=== PATIENT | male | born 1945 | race Caucasian/White ===

== ENCOUNTER 2017-04-16 09:39 | Day surgery (SDC) | payer MEDICARE, OTHER ==
[~2017-04-16] VITALS: Ht 182.9 cm; Wt 99.2 kg
[~2017-04-16 09:39] MED LIST: ASCO500 PO; ASPI81CH PO; Augmentin 875-1 EACH PO; CHOL10002 PO; HYDCHL12.5; LISI20 PO; NITR.6SL SL; Omeprazole20 M1 PO; PROP160ER PO; SIMV40 PO; Super B Comple150 MG PO
[2018-01-25] MEDS ORDERED: TOPI50 PO (04:36)
== END 2017-04-16 13:10 | disposition home or self-care (01) ==
LOC: ORSCSDS 09:39
PROVIDERS: Internal Medicine Gastroenterology
PROC: 0DBL8ZX Excision of Transverse Colon, Via Natural or Artificial Opening Endoscopic, Diagnostic (ICD-10-PCS; principal; 2017-04-16 12:00)
PROC: 0DBH8ZX Excision of Cecum, Via Natural or Artificial Opening Endoscopic, Diagnostic (ICD-10-PCS; principal; 2017-04-16 12:00)
PROC: 0DBK8ZX Excision of Ascending Colon, Via Natural or Artificial Opening Endoscopic, Diagnostic (ICD-10-PCS; principal; 2017-04-16 12:00)
PROC: 0DBM8ZX Excision of Descending Colon, Via Natural or Artificial Opening Endoscopic, Diagnostic (ICD-10-PCS; principal; 2017-04-16 12:00)
DX: Z12.11 Encounter for screening for malignant neoplasm of colon (principal); D12.0 Benign neoplasm of cecum; D12.2 Benign neoplasm of ascending colon; D12.3 Benign neoplasm of transverse colon; D12.4 Benign neoplasm of descending colon; Z86.010 Personal history of colon polyps; K64.8 Other hemorrhoids; K57.30 Diverticulosis of large intestine without perforation or abscess without bleeding; I25.10 Atherosclerotic heart disease of native coronary artery without angina pectoris; I25.2 Old myocardial infarction; E78.5 Hyperlipidemia, unspecified; I10 Essential (primary) hypertension; K21.9 Gastro-esophageal reflux disease without esophagitis; Z95.1 Presence of aortocoronary bypass graft; Z87.891 Personal history of nicotine dependence; Z79.82 Long term (current) use of aspirin; Z79.899 Other long term (current) drug therapy
CPT/HCPCS: 88305; J7120

== ENCOUNTER 2018-07-26 06:07 | Day surgery (SDC) | payer MEDICARE, OTHER ==
[~2018-07-26] VITALS: Ht 182.9 cm; Wt 215.0 kg
[~2018-07-26 06:07] MED LIST changes: +ALA-CORT28.4 GM UD; +HYDCHL12.5 PO; +Mobic15 MG PO; +TOPI50 PO; +VITAMIN C500 MG PO
--- NOTE | 2018-07-26 08:35 | NUR ---
Pt able to swallow took sips of h2o, gag reflux present. Pt ambulated hallway julia well. Denies pain, dizziness.
--- NOTE | 2018-07-26 08:48 | NUR ---
DISCHARGE PT REMAINED A&OX3-PT ABLE TO SWALLOW AMBULATE AND DRESS SELF. IV DC'D WITH TIP IN TACT. DISCHARGE PAPERWORK GONE OVER WITH PT AND SPOUSE. PT DENIED ANY QUESTIONS REGUARDING THE DISCHARGE EDCATION GIVEN. DR. BROWN SPOKE WITH FAMILY. PT WHEELED OUT BY ALEENA Rodriguez RN.
== END 2018-07-26 22:38 | disposition home or self-care (01) ==
LOC: MHTC 06:07
DX: I34.0 Nonrheumatic mitral (valve) insufficiency (principal); I25.10 Atherosclerotic heart disease of native coronary artery without angina pectoris; I25.2 Old myocardial infarction; I10 Essential (primary) hypertension; E78.5 Hyperlipidemia, unspecified; J44.9 Chronic obstructive pulmonary disease, unspecified; Z79.899 Other long term (current) drug therapy; Z79.82 Long term (current) use of aspirin; Z87.891 Personal history of nicotine dependence; Z95.1 Presence of aortocoronary bypass graft
CPT/HCPCS: 76376; 93312; 93325; J2250; J2704; J7030

== ENCOUNTER → 2020-06-20 | Outpatient (CLI) | payer MEDICARE, OTHER ==
[2020-06-21 13:33] LABS: Adenovirus F 40/41 Not Detected (NOT DETECT); Astrovirus Not Detected (NOT DETECT); Campylobacter Sp Not Detected (NOT DETECT); Cryptosporidium Not Detected (NOT DETECT); Cyclospora Cayetanensis Not Detected (NOT DETECT); E. Coli O157 Not Detected (NOT DETECT); Entamoeba Histolytica Not Detected (NOT DETECT); Enteroaggregative E. coli-EAEC Not Detected (NOT DETECT); Enteropathogenic E. coli-EPEC Not Detected (NOT DETECT); Enterotoxigenic E. coli-ETEC Not Detected (NOT DETECT); Giardia Lamblia Not Detected (NOT DETECT); Norovirus GI/GII Not Detected (NOT DETECT); Plesiomonas Shigelloides Not Detected (NOT DETECT); Rotavirus A Not Detected (NOT DETECT); Salmonella Sp Not Detected (NOT DETECT); Sapovirus Not Detected (NOT DETECT); Shiga Toxin-prod E. coli-STEC Not Detected (NOT DETECT); Shigella/Enteroin E. coli-EIEC Not Detected (NOT DETECT); Vibrio Cholerae Not Detected (NOT DETECT); Vibrio Sp Not Detected (NOT DETECT); Yersinia Enterocolitica Not Detected (NOT DETECT)
== END | disposition home or self-care (01) ==
LOC: LAB SHORT 20:00 → LAB 20:00
PROVIDERS: Radiology Radiation Oncology
DX: R19.7 Diarrhea, unspecified (principal)
CPT/HCPCS: 0097U

== ENCOUNTER → 2020-08-08 | Outpatient (CLI) | payer MEDICARE, OTHER ==
[2020-08-09 12:54] LABS: Stool Occult Bld Immuno 1 Negative (NEGATIVE)
== END | disposition home or self-care (01) ==
LOC: LAB SHORT 10:00 → LAB EV 10:00 → LAB SHORT 08-09 11:26
PROVIDERS: Physician Assistant
DX: D64.9 Anemia, unspecified (principal)
CPT/HCPCS: 82274

== ENCOUNTER 2020-11-25 21:31 | Emergency (ER) | payer MEDICARE, OTHER ==
[~2020-11-25] VITALS: Ht 182.9 cm; Wt 81.7 kg
[2020-11-25 22:10] LABS: BASOPHILS ABSOLUTE AUTO 0.05 K/mm3 (0.00-0.23); BASOPHILS PERCENT AUTO 1 % (0-2); EOSINOPHILS ABSOLUTE AUTO 0.48 K/mm3 (0.00-0.68); EOSINOPHILS PERCENT AUTO 6 % (0-6); Hematocrit 39.7 % (37.0-53.0); Hemoglobin 13.3 g/dL (13.5-17.5); IMMATURE GRAN ABSOLUTE AUTO 0.03 K/mm3 (0.00-0.10); IMMATURE GRAN PERCENT AUTO 0 % (0-1); LYMPHOCYTES ABSOLUTE AUTO 1.53 K/mm3 (0.84-5.20); LYMPHOCYTES PERCENT AUTO 19 % (21-46); MONOCYTES ABSOLUTE AUTO 1.17 K/mm3 (0.16-1.47); MONOCYTES PERCENT AUTO 15 % (4-13); Mean Corpuscular HGB 32.5 pg (26.0-34.0); Mean Corpuscular HGB Conc 33.5 g/dL (31.5-36.5); Mean Corpuscular Volume 97 fL (80-100); Mean Platelet Volume 9.9 fL (9.1-12.4); NEUTROPHILS ABSOLUTE AUTO 4.65 K/mm3 (1.96-9.15); NEUTROPHILS PERCENT AUTO 59 % (41-73); Platelet Count 197 K/mm3 (150-400); RDW Coefficient Variation 12.6 % (11.7-14.2); RDW Standard Deviation 45.1 fL (35.1-46.3); Red Blood Cell Count 4.09 M/mm3 (4.30-5.90); White Blood Cell Count 7.91 K/mm3 (4.00-11.30)
[2020-11-25 22:44] LABS: Alanine Aminotransfer (ALT/SGP 27 U/L (12-78); Albumin, Blood 3.3 g/dL (3.4-5.0); Albumin/Globulin Ratio 1.1 (0.8-1.8); Alk Phos 74 U/L (50-136); Anion Gap 6 mmol/L (6-16); Aspartate Aminotrans (AST/SGOT 22 U/L (12-37); Bilirubin, Total 0.5 mg/dL (0.1-1.0); Blood Urea Nitrogen 28 mg/dL (8-24); Bun/Creatinine Ratio 18.4 (12.0-20.0); CO2, Blood 24 mmol/L (21-32); Chloride, Blood 109 mmol/L (98-108); Creatinine, Blood 1.52 mg/dL (0.60-1.20); Glomerular Filtration Rate 45 (60-); Glucose, Blood 105 mg/dL (70-99); Potassium, Blood 4.1 mmol/L (3.5-5.5); Sodium, Blood 139 mmol/L (136-145); Total Protein, Blood 6.3 g/dL (6.4-8.2); Troponin I <0.015 ng/mL (0.000-0.040)
== END 2020-11-26 00:26 | disposition home or self-care (01) ==
LOC: ER 21:31
PROVIDERS: Emergency Medicine
DX: I95.9 Hypotension, unspecified (principal)
CPT/HCPCS: 70450; 80053; 84484; 85025; 93005; 93010; 99285-25; J7030

== ENCOUNTER 2021-07-05 06:08 | Day surgery (SDC) | payer MEDICARE, OTHER ==
[~2021-07-05] VITALS: Ht 182.9 cm; Wt 90.4 kg
[~2021-07-05 06:08] MED LIST changes: +ATOR40TA PO; +FURO40 PO; +HYDCOR2.5C PR; +POTCHL20ER PO; +REVATIO10 MG/1 ML PO; +TOPI100 PO
[2021-07-05] MEDS ORDERED: METO25ER PO (06:30)
--- NOTE | 2021-07-05 07:15 | NUR ---
DR HENLEY HERE TO SEE PT. DR HENLEY SHOWN REDNESS AREA TO LIZZIE AREA.
--- NOTE | 2021-07-05 07:18 | NUR ---
Ambulatory in Day Surgery WITH . History, Chart, Medications and Allergies reviewed before start of procedure.Lungs clear T/O to Auscultation. Patient confirms NPO status and agrees with scheduled surgery. Pre-Op teaching done. Pt verbalizes understanding.
[2021-07-05] MEDS ORDERED: Vitamin B-Comp1 EACH PO (16:13)
[2021-07-05] MEDS ORDERED: HYDR1TAB94 PO (16:14)
--- NOTE | 2021-07-05 18:30 | NUR ---
SHIFT SUMMARY - POD 0 FOR INGUINAL HERNIA REPAIR PT A&OX4. ON TELE SINUS @ 71. ABDOMINAL BINDER IN PLACE, LAB SITES C/D/I. MEDICATED FOR PAIN ONCE. VOIDING SBA TO BATHROOM. TOLERATING PO INTAKE. USES CALL LIGHT APPROPRIATELY, CALL LIGHT WITHIN REACH. PLAN IS TO DISCHARGE TOMORROW
--- NOTE | 2021-07-06 04:21 | NUR ---
PT IS A&OX4, SBA TO BSC W/ FWW AND IS ABLE TO MAKE NEEDS KNOWN. POST OP DAY 1 FOR A LAP HERNIA REPAIR, DRESSINGS ARE CDI, HAS ABD BINDER IN PLACE. NO REPORTS OF PAIN THIS SHIFT. PT ABLE TO SLEEP 8+ HOURS. IS ON TELE, HAS BEEN NSR MOST OF THE NIGHT. PT TOLERATING PO FLUIDS AND SOLIDS. PLAN TO D/C THIS AM. WILL CONTINUE TO MONITOR THIS PT AND GIVE REPORT TO ONCOMING NURSE.
--- NOTE | 2021-07-06 09:50 | NUR ---
DISCHARGE VSS ON RA, MINIMAL ABDOMINAL PAIN REPORTED TO BE TOLERABLE TO PATIENT. LAP ISTES W/ DERMABOND WNL & C/D/I. EATING, DRINKING, & VOIDING WELL. DENIES N/V, DENIES CP/SOB. REMOVED X2 IV'S IN R FOREARM. DISCUSSED D/C INSTRUCTIONS & SENT W/ PATIENT. ESCORTED OUT VIA W/C.
== END 2021-07-06 09:50 | disposition home or self-care (01) ==
LOC: ORSCMMR 06:08 → ORD 07:30 → ORSCMMR 07:30 → SURS 12:43 → ORSCMMR 07-06 09:50
PROVIDERS: Surgery
PROC: 8E0W4CZ Robotic Assisted Procedure of Trunk Region, Percutaneous Endoscopic Approach (ICD-10-PCS; principal; 2021-07-05 07:30)
PROC: 0YU64JZ Supplement Left Inguinal Region with Synthetic Substitute, Percutaneous Endoscopic Approach (ICD-10-PCS; principal; 2021-07-05 07:30)
PROC: 0WUF4JZ Supplement Abdominal Wall with Synthetic Substitute, Percutaneous Endoscopic Approach (ICD-10-PCS; principal; 2021-07-05 07:30)
DX: K43.2 Incisional hernia without obstruction or gangrene (principal); K40.20 Bilateral inguinal hernia, without obstruction or gangrene, not specified as recurrent; I10 Essential (primary) hypertension; E78.5 Hyperlipidemia, unspecified; I25.10 Atherosclerotic heart disease of native coronary artery without angina pectoris; Z87.891 Personal history of nicotine dependence; I25.2 Old myocardial infarction; Z79.899 Other long term (current) drug therapy; Z79.82 Long term (current) use of aspirin
CPT/HCPCS: 49654; 49650; S2900; A9270; C1781; J0690; J1100; J2370; J2405; J2704; J3010; J7120

== ENCOUNTER 2023-02-19 14:59 | Inpatient (IN) | payer MEDICARE, OTHER ==
[~2023-02-19] VITALS: Ht 182.9 cm; Wt 75.5 kg
[~2023-02-19 14:59] MED LIST changes: -ATOR40TA PO; +FURO20 PO; -FURO40 PO; +HYDR1TAB94 PO; +LIPITOR80 MG PO; +METO25ER PO; +Vitamin B-Comp1 EACH PO
[2023-02-19 17:22] LABS: BASOPHILS ABSOLUTE AUTO 0.02 K/mm3 (0.00-0.23); BASOPHILS PERCENT AUTO 0 % (0-2); EOSINOPHILS ABSOLUTE AUTO 0.05 K/mm3 (0.00-0.68); EOSINOPHILS PERCENT AUTO 1 % (0-6); Hematocrit 41.6 % (37.0-53.0); Hemoglobin 14.2 g/dL (13.5-17.5); IMMATURE GRAN ABSOLUTE AUTO 0.02 K/mm3 (0.00-0.10); IMMATURE GRAN PERCENT AUTO 0 % (0-1); LYMPHOCYTES ABSOLUTE AUTO 0.59 K/mm3 (0.84-5.20); LYMPHOCYTES PERCENT AUTO 11 % (21-46); MONOCYTES ABSOLUTE AUTO 0.69 K/mm3 (0.16-1.47); MONOCYTES PERCENT AUTO 13 % (4-13); Mean Corpuscular HGB 31.8 pg (26.0-34.0); Mean Corpuscular HGB Conc 34.1 g/dL (31.5-36.5); Mean Corpuscular Volume 93 fL (80-100); Mean Platelet Volume 10.3 fL (9.1-12.4); NEUTROPHILS ABSOLUTE AUTO 4.07 K/mm3 (1.96-9.15); NEUTROPHILS PERCENT AUTO 75 % (41-73); Platelet Count 188 K/mm3 (150-400); RDW Coefficient Variation 12.8 % (11.7-14.2); RDW Standard Deviation 43.6 fL (35.1-46.3); Red Blood Cell Count 4.47 M/mm3 (4.30-5.90); White Blood Cell Count 5.44 K/mm3 (4.00-11.30)
[2023-02-19 17:37] LABS: Albumin, Blood 3.1 g/dL (3.4-5.0); Bilirubin, Total 0.5 mg/dL (0.1-1.0); Bun/Creatinine Ratio 21.6 (12.0-20.0); Calcium, Blood 8.5 mg/dL (8.5-10.1); Creatinine, Blood 1.16 mg/dL (0.60-1.20); Globulin, Blood 3.1 g/dL (2.2-4.0); Total Protein, Blood 6.2 g/dL (6.4-8.2)
[2023-02-19 19:03] LABS: Anti-Xa UFH, PHA Monitoring <0.10 IU/mL; International Normalized Ratio 1.03; Prothrombin Time Results 10.8 Sec (9.7-11.5)
[2023-02-19] MEDS ORDERED: Primidone50 MG PO (19:42)
[2023-02-19 21:15] VITALS: BP 77/47
[2023-02-19 21:17] VITALS: BP 90/49
[2023-02-19 21:35] VITALS: BP 112/59
[2023-02-19 21:45] VITALS: BP 106/51
[2023-02-19 22:00] VITALS: BP 101/59
[2023-02-19 23:06] VITALS: BP 102/45
[2023-02-20] VITALS (20 sets, daily range): BP systolic 85–121; BP diastolic 45–93
[2023-02-20 03:28] LABS: Hematocrit 36.4 % (37.0-53.0); Hemoglobin 12.4 g/dL (13.5-17.5); Mean Corpuscular HGB 31.7 pg (26.0-34.0); Mean Corpuscular HGB Conc 34.1 g/dL (31.5-36.5); Mean Corpuscular Volume 93 fL (80-100); Mean Platelet Volume 9.9 fL (9.1-12.4); Platelet Count 148 K/mm3 (150-400); RDW Coefficient Variation 12.8 % (11.7-14.2); RDW Standard Deviation 43.8 fL (35.1-46.3); Red Blood Cell Count 3.91 M/mm3 (4.30-5.90); White Blood Cell Count 4.05 K/mm3 (4.00-11.30)
[2023-02-20 03:52] LABS: Bun/Creatinine Ratio 24.8 (12.0-20.0); Calcium, Blood 8.2 mg/dL (8.5-10.1); Creatinine, Blood 1.01 mg/dL (0.60-1.20); Potassium, Blood 3.2 mmol/L (3.5-5.5)
--- NOTE | 2023-02-20 05:06 | NUR ---
CATRACHITOR SUMMARY PT IS ALERT AND ORIENTED X 4, COOPERATIVE WITH CARE AND ABLE TO MAKE NEEDS KNOWN. HOH. TRAYLOR. HE IS ON RA AND MAINTAINING 02 SATURATION ABOVE 92%, HE DENIES SOB. PT'S HR HIGH 40'S-50'S, LAST BP OF 111/63 MAP OF 78, HE HAS DENIED CHEST PAIN/PRESSURE ALL SHIFT. IV TO L & R AC BOTH PATENT AND INFUSING PER EMAR. PT CALLS APPROPRIATELY AND UP TO RESTROOM WITH SBA NEEDED. PT HAS BEEN NPO SINCE ADMITTED TO FLOOR AND HAS BEEN SLEEPING THE MAJORITY OF THE SHIFT. CARDIOLOGY CONSULT WAS CALLED IN. TROPONIN LEVELS ARE TRENDING DOWN. PT CURRENTLY RESTING IN BED, NORMAL AND SYMMETRICAL RISE AND FALL OF CHEST WITH RESPIRATIONS OF 16. CALL LIGHT WITHIN PTs REACH.
--- NOTE | 2023-02-20 11:38 | NUR ---
TO STRUCTURAL MANAGER patient left to propagator laborer for angio via pcu bed. patient left in no distress. heparin is on standby. pharmacy informed
--- NOTE | 2023-02-20 13:29 | NUR ---
RETURN FROM WHEEL LACER AND TRUER patient back to room from slab tripper at approx 1305. patient is to lay flat for 6 hours so until 1830. patient and family educated. right groin site. soft nontender, no hematoma or bleeding. leg is to stay straight and not move. patient and family aware and verbalized understanding.
--- NOTE | 2023-02-20 17:04 | NUR ---
shift summary this rn assumed care at 0700. soft bp this evening. right femoral site is soft nontender no hematoma or swelling. see shift assessment for further assessment. plan of care remains up to date.
[2023-02-21] VITALS (34 sets, daily range): BP systolic 91–120; BP diastolic 40–79
[2023-02-21 04:33] LABS: BASOPHILS ABSOLUTE AUTO 0.03 K/mm3 (0.00-0.23); BASOPHILS PERCENT AUTO 1 % (0-2); EOSINOPHILS ABSOLUTE AUTO 0.25 K/mm3 (0.00-0.68); EOSINOPHILS PERCENT AUTO 8 % (0-6); Hematocrit 35.3 % (37.0-53.0); Hemoglobin 11.9 g/dL (13.5-17.5); IMMATURE GRAN ABSOLUTE AUTO 0.01 K/mm3 (0.00-0.10); IMMATURE GRAN PERCENT AUTO 0 % (0-1); LYMPHOCYTES ABSOLUTE AUTO 0.86 K/mm3 (0.84-5.20); LYMPHOCYTES PERCENT AUTO 27 % (21-46); MONOCYTES ABSOLUTE AUTO 0.33 K/mm3 (0.16-1.47); MONOCYTES PERCENT AUTO 10 % (4-13); Mean Corpuscular HGB 31.9 pg (26.0-34.0); Mean Corpuscular HGB Conc 33.7 g/dL (31.5-36.5); Mean Corpuscular Volume 95 fL (80-100); Mean Platelet Volume 9.8 fL (9.1-12.4); NEUTROPHILS ABSOLUTE AUTO 1.73 K/mm3 (1.96-9.15); NEUTROPHILS PERCENT AUTO 54 % (41-73); Platelet Count 148 K/mm3 (150-400); RDW Coefficient Variation 12.6 % (11.7-14.2); RDW Standard Deviation 43.9 fL (35.1-46.3); Red Blood Cell Count 3.73 M/mm3 (4.30-5.90); White Blood Cell Count 3.21 K/mm3 (4.00-11.30)
[2023-02-21 04:51] LABS: Calcium, Blood 8.2 mg/dL (8.5-10.1); Creatinine, Blood 0.94 mg/dL (0.60-1.20); Potassium, Blood 4.1 mmol/L (3.5-5.5)
--- NOTE | 2023-02-21 06:07 | NUR ---
SHIFT SUMMARY PT ALERT AND ORIENTED X 4, COOPERATIVE WITH CARE AND ABLE TO MAKE NEEDS KNOWN. PT IS ON RA AND MAINTAINING 02 SAT ABOVE 92% HE DENIES SOB. PTS HR HAS BEEN IN THE MID 40'S-50'S. BLOOD PRESSURE HAS BEEN SOFT THIS SHIFT, MD NOTIFIED, ORDERS GIVEN, AND PT MEDICATED PER EMAR. BP NO LONGER SOFT, LAST BP OF 119/54 WITH A MAP OF 74. PT HAS DENIED CHEST PAIN/PRESSURE/DIZZINESS ALL SHIFT. POST ANGIO R GROIN SITE SOFT, NONTENDER, 0 HEMATOMA. PALPABLE PEDAL PULSES. PT HAS SLEPT THE MAJORITY OF THE SHIFT AND HE IS CURRENTLY SLEEPING. SYMMETRICAL RISE AND FALL OF CHEST, RESPIRATIONS OF 16, AND 02 SATURATION OF 98%. CALL LIGHT WITHIN REACH.
--- NOTE | 2023-02-21 08:40 | NUR ---
AM NOTE: PATIENT ALERT AND ORIENTED. HARD OF HEARING. PERRLA. DENIES NUMBNESS/TINGLING. MOVING ALL EXTREMITIES EQUALLY. UP TO BATHROOM AND RECLINER WITH SBA. AT BEDSIDE. PATIENT WITH TREMOR TO UPPER EXTREMITIES. STATES TREMOR HAS WORSENED DURING HOSPITAL STAY. TELE SHOWING SINUS ANABELL WITH HR 40-60'S. DENIES CHEST PAIN/PRESSURE/PALPITATIONS. RIGHT FEMORAL SITE S/P ANGIOGRAM. SITE REMAINS C/D/I. SOFT AND NONTENDER. NO SIGNS OF BLEEDING. THIS RN REVIEWED FEMORAL PRECAUTIONS WITH PATIENT AND . PPP. NO SIGNS OF EDMEA. SBP 115'S THIS AM. NOC SHIFT REPORTING PATIENT HAVING MAPS IN 50'S OVERNIGHT AND NEEDING 2X 500ML NS BOLUS. NS INFUSING AT THIS TIME PER EMAR AT 75 ML/HR. ON ROOM AIR SATING ABOVE 95%. DENIES SOB/COUGH. EVEN AND UNLABORED RESPIRATIONS. LUNGS SOUNDING CLEAR. BOWEL TONES PRESENT. PATIENT EATING BREAKFAST THIS AM IN RECLINER. ORAL CARE AND DENTURES IN PLACE. DENIES ABDOMINAL PAIN/NAUSEA. VOIDING WNL. PATIENT STATES HE HAD BOWEL MOVEMENT YESTERDAY. SKIN OVERALL FRAGILE WITH SCATTERED BRUISING AND SCABS/EXCORIATIONS. PATIENT AND DISCUSS CHOCOLATE LAB JUAN AT HOME THAT IS VERY PLAYFUL CAUSING MOST OF SCRATCHES. CALL LIGHT IN REACH. PATIENT VERBALIZES HE WILL CALL PRIOR TO GETTING UP. REMAINS AT BEDSIDE. DENIES NEEDS AT THIS TIME.
--- NOTE | 2023-02-21 13:49 | NUR ---
SEE RECORDED VITAL SIGNS. THIS RN UPDATED DR. BOLAND ON BLOOD PRESSURE TRENDS AND MAPS. NO NEW ORDERS FOR THIS RN. PLAN TO CONTINUE NS AT 75 ML/HR AND KEEP MEDICAL STATUS WITH TELE.
--- NOTE | 2023-02-21 17:23 | NUR ---
SHIFT SUMMARY: NO ACUTE CHANGES. SEE PREVIOUS NOTES. BLOOD PRESSURE REMAINS ON SOFTER SIDE WITH SBP 90-110'S. NS CONTINUES TO INFUSE AT 75 ML/HR. PATIENT DENIES CARDIAC SYMPTOMS. UP TO CHAIR FOR MEALS. RIGHT FEMORAL SITE REMAINS WNL. ON ROOM AIR. NO TEMPERATURE. EATING AND VOIDING WNL. FLORIDALMA AT BEDSIDE THIS EVENING AND REPORTS TO THIS RN SHE IS CONCERNED ABOUT PATIENT DEVELOPING DEMENTIA. CALL LIGHT IN REACH. EATING DINNER AT THIS TIME IN RECLINER. DENIES NEEDS.
--- NOTE | 2023-02-21 18:23 | NUR ---
PATIENT WENT FOR WALK WITH THIS RN, COMPLETE [place] AROUND NURSE STATION. HR UP TO 83 AND PATIENT DENIED ANY CARDIAC SYMPTOMS. PATIENT ABLE TO WALK IND WITH NO ISSUES. SBP 113 ONCE BACK TO ROOM. PATIENT NOW RESTING IN BED, CALL LIGHT IN REACH. DENIES NEEDS.
[2023-02-22] VITALS (47 sets, daily range): BP systolic 102–135; BP diastolic 52–86
[2023-02-22 04:11] LABS: BASOPHILS ABSOLUTE AUTO 0.03 K/mm3 (0.00-0.23); BASOPHILS PERCENT AUTO 1 % (0-2); EOSINOPHILS ABSOLUTE AUTO 0.27 K/mm3 (0.00-0.68); EOSINOPHILS PERCENT AUTO 7 % (0-6); Hematocrit 35.8 % (37.0-53.0); Hemoglobin 11.8 g/dL (13.5-17.5); IMMATURE GRAN ABSOLUTE AUTO 0.01 K/mm3 (0.00-0.10); IMMATURE GRAN PERCENT AUTO 0 % (0-1); LYMPHOCYTES ABSOLUTE AUTO 0.92 K/mm3 (0.84-5.20); LYMPHOCYTES PERCENT AUTO 22 % (21-46); MONOCYTES ABSOLUTE AUTO 0.47 K/mm3 (0.16-1.47); MONOCYTES PERCENT AUTO 11 % (4-13); Mean Corpuscular HGB 31.2 pg (26.0-34.0); Mean Corpuscular Volume 95 fL (80-100); Mean Platelet Volume 9.6 fL (9.1-12.4); NEUTROPHILS ABSOLUTE AUTO 2.48 K/mm3 (1.96-9.15); NEUTROPHILS PERCENT AUTO 59 % (41-73); Platelet Count 146 K/mm3 (150-400); RDW Coefficient Variation 12.6 % (11.7-14.2); RDW Standard Deviation 44.1 fL (35.1-46.3); Red Blood Cell Count 3.78 M/mm3 (4.30-5.90); White Blood Cell Count 4.18 K/mm3 (4.00-11.30)
[2023-02-22 04:45] LABS: Bun/Creatinine Ratio 16.3 (12.0-20.0); Calcium, Blood 8.3 mg/dL (8.5-10.1); Creatinine, Blood 0.92 mg/dL (0.60-1.20); Potassium, Blood 3.4 mmol/L (3.5-5.5)
--- NOTE | 2023-02-22 05:46 | NUR ---
End of shift note. Pt has rested most of the shift. No complaints of pain or discomfort. BPs have improved now cycling vitals per unit policy. HR has varied, 40-50s. PVCs noted, some runs of bi/trigeminy. Pt asymptomatic. Pt has been OOB multiple times, walking to the bathroom with minimal assist. IVF continue to infuse without issue. Pt is able to make needs known, call light is within reach.
[2023-02-22] MEDS ORDERED: POTA10T PO (09:47)
--- NOTE | 2023-02-22 11:02 | NUR ---
AM NOTE: PATIENT ALERT AND ORIENTED. AT TIMES HARD OF HEARING. PERRLA. DENIES NUMBNESS/TINGLING. MOVING ALL EXTREMITIES EQUALLY. UP TO BATHROOM/RECLINER SBA. TELE THIS AM SHOWING SB WITH PVC'S AND HR 50-60'S. SBP 110'S. PPP. DENIES CHEST PAIN/PRESSURE/PALPITATIONS. IV NS DISCONTINUED BY DR. BOLAND. NO EDEMA NOTED. THIS RN SPOKE WITH DR. BOLAND THIS AM REGARDING HR TRENDING 57-63 AT REST, ORDERS TO GIVE PO 12.5 MG METOPROLOL PER EMAR. ON ROOM AIR SATING ABOVE 95%. EVEN AND UNLABORED RESPIRATIONS. DENIES SOB/COUGH. BOWEL TONES PRESENT. PATIENT REPORTS ONE EPISODE OF DIARRHEA THIS AM. EATING WNL. DENIES ABDOMINAL PAIN/NAUSEA. SWALLOWING PILLS WHOLE WITH WATER. SKIN OVERALL SCATTERED BRUISING AND EXCORIATIONS. S/P ANGIO SITE TO RIGHT FEMORAL WNL. NO SIGNS OF BLEEDING. CALL LIGHT IN REACH. FLORIDALMA CALLED THIS AM TO UPDATE.
--- NOTE | 2023-02-22 11:07 | NUR ---
SVT: AT 913 PATIENT HAD RHYTHM CHANGE FROM SB WITH PVC'S TO SVT WITH HR 190'S. THIS RN, CONSERVATION SCIENCE OFFICER FRMO PCU/ICU AND DR. BOLAND TO BEDSIDE. PATIENT BLOOD PRESSURE SBP 110'S. PATIENT ATTEMPTED VALSALVA WITH NO RHYTHM CHANGE. CODE CART BROUGHT IN ROOM AND ZOLL PADS PLACED ON PATIENT. PATIENT VERY SHORT WITH ANSWERS BUT COMPLAINS OF BACK PAIN AND FEELING OFF. ORDERS FROM DR. BOLAND TO GIVE 6MG IV ADENOSINE, WHICH WAS GIVEN BY THIS RN AT 09. ADDITIONAL ORDERS TO GIVE 12 MG IV ADENOSINE, WHICH WAS GIVEN BY THIS RN AT 09. NO RHYTHM CHANGE, PATIENT REMAINS IN SVT WITH HR 190'S. DR. BLACKMON TO BEDSIDE. ORDERS TO GIVE 150MG IV PUSH AMIO, WHICH WAS GIVEN BY THIS RN AT 922. PATIENT CONVERSION TO SR WITHHR 70'S AT 923. AMIO GTT STARTED. STAT LABS DRAWN. POST CONVERSION PATIENT MORE TALKATIVE AND ABLE TO REPORT DURING EPISODE BACK PAIN WAS 11/10 AND POST COVERSION BACK PAIN IS "BETTER". PATIENT NOW RATING BACK PAIN 0/10. PATIENT DENIED CHEST PAIN DURING ENTIRE EPISODE, ONLY REFERING TO PAIN WITHIN HIS BACK. ECHO BEING DONE AT THIS TIME. MAG AND AMIO GTT INFUSING. PATIENT AT BEDSIDE FOR SVT EPISODE AND UPDATED BY DR. BOLAND AND DR. BLACKMON. SEE SAVED STRIPS IN CHART AND EMAR FOR MED DOCUMENTATION. PATIENT CURRENTLY MAINTAINS SB WITH HR 50-60'S AND MOST CURRENT BLOOD PRESSURE 103/57 (72). REMAINS AT BEDSIDE. CALL LIGHT IN REACH.
[2023-02-22 17:34] LABS: Magnesium, Blood 1.9 mg/dL (1.6-2.4)
[2023-02-22 17:36] LABS: Bun/Creatinine Ratio 13.5 (12.0-20.0); Calcium, Blood 8.2 mg/dL (8.5-10.1); Creatinine, Blood 0.89 mg/dL (0.60-1.20); Potassium, Blood 4.2 mmol/L (3.5-5.5); Thyroid Stimulating Hormone 0.995 uIU/mL (0.360-4.800)
--- NOTE | 2023-02-22 18:16 | NUR ---
SHIFT SUMMARY: PATIENT REMAINS ALERT AND ORIENTED. BED BATH COMPLETED THIS AFTERNOON. TELE CONTINUES TO SHOW SB/SR WITH HR 50-70'S. BP STABLE. SEE CHARTED VITALS. CONTINUES TO DENY CHEST PAIN/PRESSURE/PALPIATIONS AND BACK PAIN. AMIO GTT INFUSING AT 0.5MG/MIN. EATING AND VOIDING WNL. REMAINS ON ROOM AIR SATING MID 90'S. FLORIDALMA AND BOOMON BY THIS EVENING, UPDATE PROVIDED BY THIS RN. CALL LIGHT IN REACH. PATIENT SLEEPING IN BED AT THIS TIME.
[2023-02-23] VITALS (25 sets, daily range): BP systolic 83–124; BP diastolic 48–104
[2023-02-23 05:06] LABS: BASOPHILS ABSOLUTE AUTO 0.03 K/mm3 (0.00-0.23); BASOPHILS PERCENT AUTO 1 % (0-2); EOSINOPHILS ABSOLUTE AUTO 0.29 K/mm3 (0.00-0.68); EOSINOPHILS PERCENT AUTO 6 % (0-6); Hematocrit 36.5 % (37.0-53.0); Hemoglobin 12.3 g/dL (13.5-17.5); IMMATURE GRAN ABSOLUTE AUTO 0.01 K/mm3 (0.00-0.10); IMMATURE GRAN PERCENT AUTO 0 % (0-1); LYMPHOCYTES ABSOLUTE AUTO 0.75 K/mm3 (0.84-5.20); LYMPHOCYTES PERCENT AUTO 16 % (21-46); MONOCYTES ABSOLUTE AUTO 0.52 K/mm3 (0.16-1.47); MONOCYTES PERCENT AUTO 11 % (4-13); Mean Corpuscular HGB 31.7 pg (26.0-34.0); Mean Corpuscular HGB Conc 33.7 g/dL (31.5-36.5); Mean Corpuscular Volume 94 fL (80-100); Mean Platelet Volume 9.6 fL (9.1-12.4); NEUTROPHILS ABSOLUTE AUTO 3.15 K/mm3 (1.96-9.15); NEUTROPHILS PERCENT AUTO 66 % (41-73); Platelet Count 174 K/mm3 (150-400); RDW Coefficient Variation 12.6 % (11.7-14.2); RDW Standard Deviation 43.2 fL (35.1-46.3); Red Blood Cell Count 3.88 M/mm3 (4.30-5.90); White Blood Cell Count 4.75 K/mm3 (4.00-11.30)
[2023-02-23 05:57] LABS: Albumin, Blood 2.6 g/dL (3.4-5.0); Bilirubin, Total 0.4 mg/dL (0.1-1.0); Bun/Creatinine Ratio 16.4 (12.0-20.0); Calcium, Blood 8.2 mg/dL (8.5-10.1); Creatinine, Blood 0.79 mg/dL (0.60-1.20); Globulin, Blood 2.6 g/dL (2.2-4.0); Magnesium, Blood 2.3 mg/dL (1.6-2.4); Potassium, Blood 3.9 mmol/L (3.5-5.5); Total Protein, Blood 5.2 g/dL (6.4-8.2)
--- NOTE | 2023-02-23 06:31 | NUR ---
END OF SHIFT NOTE. PT HAS HAD A GOOD SHIFT. BP AND HR MUCH IMPROVED COMPARED TO PREVIOUS SHIFTS. NO SIGNIFICANT ECTOPY NOTED ON TELE. PT HAS BEEN OOB TO THE COMMODE MULTIPLE TIMES. COULD TOLERATE WALKING LONGER NEXT TIME OOB. CARDIOLOGY ROUNDED EARLY THIS MORNING, NEW ORDERS GIVEN. VITALS TO CONTINUE TO CYCLE HOURLY. MD WILL MONITOR AND DECIDE ABOUT ADDING ADDITIONAL MEDICATIONS. PO AMIO TO START AFTER IV INFUSION IS COMPLETE. PT IS ABLE TO MAKE NEEDS KNOWN, CALL LIGHT IS WITHIN REACH.
--- NOTE | 2023-02-23 07:15 | NUR ---
ASSUMED CARE: PT RESTING IN BED AT THIS TIME. AMIODORONE GTT RUNNING. CURRENTLY SINUS ANABELL AT 52 ON TELE. NO ACUTE NEEDS OR CONCERNS AT THIS TIME.
--- NOTE | 2023-02-23 11:00 | NUR ---
CALL TO DR BLACKMON TO GIVE UPDATE ON STATUS. DUE TO SBP IN 90S FOR LAST 2 CHECKS, NO ORDERS FOR LISINOPRIL AT THIS TIME. INSTRUCTS TO GET PT UP INTO CHAIR TODAY AND TO CALL BACK WITH UPDATE THIS AFTERNOON.
--- NOTE | 2023-02-23 13:13 | NUR ---
Patient is sitting on a chair and alert. He tells me about his recent medical events and the ones that continue to occur. He talks about his concerns about D/C if his heart is not going to "stay on track." He tells me about the of his spouse, Scottie and about his current spouse, Praveena. He tells me about his deep involvement in synagogue and his drift away from zenaida. We discuss his second shot at life and the beauty of celebrating being on this planet. I normalize his experience, reinforce helpful attitudes and provide therapeutic listening and pryaer. Patient responded well and showed signs of greater peace. I will continue to remain available to patient and family.
--- NOTE | 2023-02-23 14:40 | NUR ---
PT'S FAMILY AT BEDSIDE AND HAD QUESTIONS ABOUT FAMILY CARE GIVERS. BRAKE LINING MAKER AT BEDSIDE TO DISCUSS THIS AT THIS TIME.
--- NOTE | 2023-02-23 15:02 | NUR ---
CALL TO DR BLACKMON TO UPDATE ON PT'S STATUS. NO LISINOPRIL FOR TODAY DUE TO SYSTOLICS IN 90S AT TIMES. PT GOT UP TO CHAIR FOR A FEW HOURS AND TOLERATED WELL WITH OCCASIONAL PVCS BUT NO OTHER SYMPTOMS.
--- NOTE | 2023-02-23 17:58 | NUR ---
SHIFT SUMMARY: PT CURRENTLY SINUS ANABELL IN THE 50S ON TELE. CARDIOLOGY FOLLOWING. UP TO CHAIR THIS SHIFT WITHOUT SIGNIFICANT CHANGES TO TELE. NO ACUTE NEEDS OR CONCERNS AT THIS TIME.
[2023-02-24] VITALS (8 sets, daily range): BP systolic 102–118; BP diastolic 46–95
[2023-02-24 04:32] LABS: BASOPHILS ABSOLUTE AUTO 0.03 K/mm3 (0.00-0.23); BASOPHILS PERCENT AUTO 1 % (0-2); EOSINOPHILS ABSOLUTE AUTO 0.31 K/mm3 (0.00-0.68); EOSINOPHILS PERCENT AUTO 6 % (0-6); Hematocrit 37.3 % (37.0-53.0); Hemoglobin 12.7 g/dL (13.5-17.5); IMMATURE GRAN ABSOLUTE AUTO 0.03 K/mm3 (0.00-0.10); IMMATURE GRAN PERCENT AUTO 1 % (0-1); LYMPHOCYTES ABSOLUTE AUTO 0.83 K/mm3 (0.84-5.20); LYMPHOCYTES PERCENT AUTO 15 % (21-46); MONOCYTES ABSOLUTE AUTO 0.61 K/mm3 (0.16-1.47); MONOCYTES PERCENT AUTO 11 % (4-13); Mean Corpuscular HGB 31.6 pg (26.0-34.0); Mean Corpuscular Volume 93 fL (80-100); Mean Platelet Volume 9.6 fL (9.1-12.4); NEUTROPHILS ABSOLUTE AUTO 3.67 K/mm3 (1.96-9.15); NEUTROPHILS PERCENT AUTO 67 % (41-73); Platelet Count 199 K/mm3 (150-400); RDW Coefficient Variation 12.6 % (11.7-14.2); RDW Standard Deviation 43.1 fL (35.1-46.3); Red Blood Cell Count 4.02 M/mm3 (4.30-5.90); White Blood Cell Count 5.48 K/mm3 (4.00-11.30)
[2023-02-24 05:44] LABS: Albumin, Blood 2.6 g/dL (3.4-5.0); Anion Gap 5 mmol/L (6-16); Blood Urea Nitrogen 16 mg/dL (8-24); Bun/Creatinine Ratio 20.2 (12.0-20.0); CO2, Blood 22 mmol/L (21-32); Calcium, Blood 8.6 mg/dL (8.5-10.1); Chloride, Blood 114 mmol/L (98-108); Creatinine, Blood 0.79 mg/dL (0.60-1.20); Glomerular Filtration Rate 92 (60-); Glucose, Blood 99 mg/dL (70-99); Phosphorus, Blood 3.1 mg/dL (2.5-4.9); Potassium, Blood 4.1 mmol/L (3.5-5.5); Sodium, Blood 141 mmol/L (136-145)
--- NOTE | 2023-02-24 06:36 | NUR ---
SHIFT SUMMARY PATIENT ALERT AND ORIENTED X4, STAND BY ASSIST TO THE BEDSIDE COMMODE. PATIENT ON ROOM AIR, SPO2 >90%, DENIES SHORTNESS OF BREATH. PATIENT HAS DENIED BOTH CHEST AND BACK PAIN, VITAL SIGNS STABLE, NO EVENTS NOTED ON TELEMETRY OVERNIGHT. WILL CONTINUE TO MONITOR. CALL LIGHT WITHIN REACH.
--- NOTE | 2023-02-24 07:20 | NUR ---
EKG REVIEWED BY THIS RN AND DR PHILLIPS THIS AM, PER DR PHILLIPS PT WOULD BE APPROPRIATE FOR D/C TODAY HE IS TOLERATING MEDICATIONS WELL
[2023-02-24] MEDS ORDERED: AMIODARONE HCL400 M2 PO (11:38)
[2023-02-24] MEDS ORDERED: Amiodarone HCl200 MG PO (11:38)
[2023-02-24] MEDS ORDERED: JARDIANCE10 MG PO (11:39)
[2023-02-24] MEDS ORDERED: CLOP75 PO (11:39)
--- NOTE | 2023-02-24 12:42 | NUR ---
PT D/C TO HOME. PT AND FAMILY EDUCATED ABOUT D/C NEW MEDICATIONS, IS ASSISTED IN SETTING UP DRUG SAVINGS PROGRAM FOR JARDIANCE. THEY EXPRESSED UNDERSTANDING OF DC TEACHING AND DENY FURHTER NEEDS. IV AND POWERGLIDE REMOVED AND PRESSURE DRESSED.
== END 2023-02-24 12:10 | disposition home or self-care (01) | DRG 280 ==
LOC: ER 14:59 → PCU 20:01
PROVIDERS: Emergency Medicine; Family Medicine; Internal Medicine; Internal Medicine Cardiovascular Disease; Nurse Practitioner Acute Care; Physician Assistant; ADMIT Internal Medicine
PROC: B2111ZZ Fluoroscopy of Multiple Coronary Arteries using Low Osmolar Contrast (ICD-10-PCS; principal; 2023-02-20)
PROC: B2131ZZ Fluoroscopy of Multiple Coronary Artery Bypass Grafts using Low Osmolar Contrast (ICD-10-PCS; 2023-02-20)
PROC: B2181ZZ Fluoroscopy of Left Internal Mammary Bypass Graft using Low Osmolar Contrast (ICD-10-PCS; 2023-02-20)
DX: I21.4 Non-ST elevation (NSTEMI) myocardial infarction (principal); I50.23 Acute on chronic systolic (congestive) heart failure; I47.29 Other ventricular tachycardia; I25.10 Atherosclerotic heart disease of native coronary artery without angina pectoris; I25.5 Ischemic cardiomyopathy; E78.5 Hyperlipidemia, unspecified; I34.0 Nonrheumatic mitral (valve) insufficiency; K21.9 Gastro-esophageal reflux disease without esophagitis; Z66 Do not resuscitate; I11.0 Hypertensive heart disease with heart failure; J44.9 Chronic obstructive pulmonary disease, unspecified; D69.6 Thrombocytopenia, unspecified; G25.0 Essential tremor; E83.42 Hypomagnesemia; E87.6 Hypokalemia; Z95.1 Presence of aortocoronary bypass graft; Z79.82 Long term (current) use of aspirin; Z87.891 Personal history of nicotine dependence
CPT/HCPCS: 36415; 71046; 76937; 80048; 80053; 80069; 83735; 83880; 84443; 84484; 85025; 85027; 85520; 85610; 85730; 93005; 93010; 93306; 93455; 96365; 96366; 99152; 99153; 99285-25; A9270; C1769; C1894; J0153; J0282; J1644; J1650; J2250; J3010; J3475; J7030; J7040; J7050; J7060; Q9967

== ENCOUNTER 2023-06-13 07:29 | Emergency (ER) | payer OTHER, MEDICARE ==
[~2023-06-13] VITALS: Ht 182.9 cm; Wt 68.5 kg
[~2023-06-13 07:29] MED LIST changes: +AMIODARONE HCL400 M2 PO; +ATOR40TA PO; +Amiodarone HCl200 MG PO; +CLOP75 PO; +FUROSEMIDE40 MG PO; +JARDIANCE10 MG PO; +METOPROLOL SUCC25 MG PO; +POTA10T PO; +Potassium Chlo20 ME1 PO; +Primidone50 MG PO
[2023-06-13 07:55] VITALS: BP 101/68
[2023-06-13] MEDS ORDERED: OXYC5 PO (09:39)
[2023-06-13] MEDS ORDERED: Acetaminophen 325 MG TABLET PO ONE (09:40)
== END 2023-06-13 10:32 | disposition home or self-care (01) ==
LOC: ER 07:29
DX: S62.617A Displaced fracture of proximal phalanx of left little finger, initial encounter for closed fracture (principal); S62.615A Displaced fracture of proximal phalanx of left ring finger, initial encounter for closed fracture; S61.412A Laceration without foreign body of left hand, initial encounter; W01.0XXA Fall on same level from slipping, tripping and stumbling without subsequent striking against object, initial encounter; I10 Essential (primary) hypertension; K21.9 Gastro-esophageal reflux disease without esophagitis; E78.5 Hyperlipidemia, unspecified; Z79.02 Long term (current) use of antithrombotics/antiplatelets; Z79.82 Long term (current) use of aspirin; Z79.899 Other long term (current) drug therapy
CPT/HCPCS: 29125; 73140; 99283-25; A9270

== ENCOUNTER 2023-10-11 20:53 | Inpatient (IN) | payer OTHER ==
[~2023-10-11] VITALS: Ht 177.8 cm; Wt 60.2 kg
[~2023-10-11 20:53] MED LIST changes: +OXYC5 PO
[2023-10-11] MEDS ORDERED: Magnesium Sulf 2 GM/Water 50ML 50 ML IV ONE (21:10)
[2023-10-11] MEDS ORDERED: Ondansetron HCl 2 MG / ML 2ML Vial IV ONE (21:15)
[2023-10-11 21:17] LABS: Chloride (POC) 100 mmol/L (98-108); Creatinine (POC) 1.4 mg/dL (0.8-1.3); Glucose (ISTAT POC) 175 mg/dL (70-99); Hemoglobin (POC) 14.3 g/dL (13.5-17.5); Potassium (POC) 2.7 mmol/L (3.5-5.5); Sodium (POC) 141 mmol/L (135-148); Total CO2 (POC) 26 mmol/L (21-32)
[2023-10-11] MEDS ORDERED: FentaNYL Citrate 50 MCG/ML 2 ML Injection IV ONE ×2 (21:25→22:00)
[2023-10-11] MEDS ORDERED: Promethazine HCl 25 MG Tab PO PRN (21:45)
[2023-10-11] MEDS ORDERED: Scopolamine Hydrobromide Patch TOP PRN (21:45)
[2023-10-11] MEDS ORDERED: Morphine Sulfate 20 MG/1ML 1 ML Oral Syringe SL PRN (21:45)
[2023-10-11] MEDS ORDERED: Promethazine HCl 25 MG Supp PR PRN (21:45)
[2023-10-11] MEDS ORDERED: Atropine Sulfate 1% Opth Soln 2ML BTL SL PRN (21:50)
[2023-10-11] MEDS ORDERED: LORazepam 2 MG/ML 1ML Injection IV PRN (21:50)
[2023-10-11 22:01] VITALS: BP 121/74
--- NOTE | 2023-10-12 01:25 | NUR ---
ASSUMED CARE OF PT AT 2345. PT IS POST CARDIAC ARREST AND AT THIS TIME HE IS UNABLE TO COMMUNICATE. IT IS UNCLEAR IF PT UNDERSTANDS WHAT IS HAPPENING OR WHERE HE IS. HE IS VERY TREMULOUS BUT UNCLEAR IF IT IS AGITATION OR DUE TO PARKINSONS. HE APPEARS TO BE INCOHERENT. COMFORT MEASURES ONLY. ATIVAN AND MORPHINE GIVEN FOR PT'S COMFORT. BREATHING IS LABORED. FAMILY ACCOMPANIED PT TO ROOM AND LEFT SHORTLY AFTER.
--- NOTE | 2023-10-12 06:01 | NUR ---
PT PEACEFULLY AT 0525. CARI MIXON RN AND VINCE ALVARENGA RN VERIFIED . NOTIFIED AND HOME BEING CONTACTED BY CHARGE NURSE. POST MORTEM CARE DONE; IV'S REMOVED, PT CLEANED, AND BRIEF CHANGED.
[2023-10-12] MEDS ORDERED: Topiramate 100 MG Tab PO SCH (09:00)
[2023-10-12] MEDS ORDERED: Furosemide 40 MG Tab PO SCH (09:00)
[2023-10-12] MEDS ORDERED: Primidone 50 MG Tab PO SCH (09:00)
[2023-10-12] MEDS ORDERED: Amiodarone HCl 50 MG / ML 3 ML Amp IV ONE (09:07)
[2023-10-12] MEDS ORDERED: Sodium Bicarb 8.4% 50 mEq Syringe IV ONE (09:07)
[2023-10-12] MEDS ORDERED: EPINEPhrine HCl 0.1 MG/ML 10ML SYR IV ONE (09:07)
== END 2023-10-12 15:55 | DRG 951 ==
LOC: ER 20:53 → MEDS 20:54
PROVIDERS: Emergency Medicine; ADMIT Internal Medicine
PROC: 0T9B70Z Drainage of Bladder with Drainage Device, Via Natural or Artificial Opening (ICD-10-PCS; principal; 2023-10-12)
PROC: 5A12012 Performance of Cardiac Output, Single, Manual (ICD-10-PCS; 2023-10-12)
PROC: 3E033XZ Introduction of Vasopressor into Peripheral Vein, Percutaneous Approach (ICD-10-PCS; 2023-10-12)
DX: Z51.5 Encounter for palliative care (principal); I47.20 Ventricular tachycardia, unspecified; I49.01 Ventricular fibrillation; Z66 Do not resuscitate; I25.10 Atherosclerotic heart disease of native coronary artery without angina pectoris; I46.2 Cardiac arrest due to underlying cardiac condition; I34.0 Nonrheumatic mitral (valve) insufficiency; I10 Essential (primary) hypertension; E78.5 Hyperlipidemia, unspecified; K21.9 Gastro-esophageal reflux disease without esophagitis; I25.2 Old myocardial infarction; Z79.899 Other long term (current) drug therapy; Z85.46 Personal history of malignant neoplasm of prostate; Z95.1 Presence of aortocoronary bypass graft; Z79.82 Long term (current) use of aspirin; Z79.891 Long term (current) use of opiate analgesic; Z98.890 Other specified postprocedural states; Z87.891 Personal history of nicotine dependence; Z79.02 Long term (current) use of antithrombotics/antiplatelets
CPT/HCPCS: 80047; 85014; 92950; 93005; 93010; 96365; 96368; 96375; 96376; 99285-25; A9270; G0378; J0282; J2060; J2405; J3010; J3475; J7060